=== PATIENT | female | born 1975 | race Caucasian/White ===

== ENCOUNTER 2017-02-21 15:32 | Emergency (ER) | payer OTHER ==
[~2017-02-21] VITALS: Ht 157.5 cm; Wt 65.0 kg
[~2017-02-21 15:32] MED LIST: CITA10TA8 PO; CLON0.5T PO; ONDA4TAB7 PO; OXYC-302 PO
[2017-02-21] MEDS ORDERED: HYDROmorphone 2 MG/ML, 1ML ONE (16:56)
[2017-02-21] MEDS ORDERED: ONDANSETRON 2MG/ML, 2ML ONE (16:56)
[2017-02-21] MEDS ORDERED: SODIUM CHLORIDE FLUSH 10ML SYR IVF ONE (17:00)
[2017-02-21] MEDS ORDERED: ONDANSETRON 2MG/ML, 2ML IVPush ONE (17:00)
[2017-02-21] MEDS ORDERED: SODIUM CHLORIDE 0.9% 1,000ML IVBOLUS ONE (17:00)
[2017-02-21] MEDS ORDERED: HYDROmorphone 1 MG/ML, 1ML IVPush PRN (17:00)
[2017-02-21 17:10] LABS: MICROSCOPIC AUTO
[2017-02-21 17:14] LABS: CULTURE INDICATED? NO
[2017-02-21 17:16] LABS: BASOPHILS # (AUTO) 0.02 x10^3/uL (0-0.1); BASOPHILS % (AUTO) 0 % (0-1); EOSINOPHILS % (AUTO) 0 % (1-7); LYMPHOCYTES # (AUTO) 0.84 x10^3/uL (1-3.4); LYMPHOCYTES % (AUTO) 7 % (22-44); MD NO; MEAN CORPUSCULAR HEMOGLOBIN 26.9 pg (27.0-34.8); MEAN CORPUSCULAR HGB CONC 32.6 g/dL (32.4-35.8); MEAN CORPUSCULAR VOLUME 82.6 fL (80-100); MEAN PLATELET VOLUME 8.2 fL (7.4-10.4); MONOCYTES # (AUTO) 0.25 x10^3/uL (0.2-0.8); MONOCYTES % (AUTO) 2 % (2-9); NEUTROPHILS # (AUTO) 10.93 x10^3/uL (1.8-6.8); NEUTROPHILS % (AUTO) 91 % (42-75); PLATELET COUNT 345 x10^3/uL (130-400); RED BLOOD COUNT 4.78 x10^6/uL (3.82-5.3); RED CELL DISTRIBUTION WIDTH 17.1 % (9.6-15.2)
[2017-02-21 17:24] LABS: ALANINE AMINOTRANSFERASE 20 U/L (12-78); ALBUMIN 3.5 g/dL (3.4-5.0); ANION GAP 7 mmol/L (5-15); CALCIUM 8.6 mg/dL (8.5-10.1); CHLORIDE 111 mmol/L (98-107); CREATININE 0.73 mg/dL (0.55-1.02)
[2017-02-21 17:26] LABS: ALKALINE PHOSPHATASE 66 U/L (45-117); BILIRUBIN,TOTAL 0.2 mg/dL (0.2-1.0); TOTAL PROTEIN 6.8 g/dL (6.4-8.2)
[2017-02-21 18:22] VITALS: BP 117/67
== END 2017-02-21 18:46 | disposition home or self-care (01) ==
LOC: ED 18:19
DX: K56.690 Other partial intestinal obstruction (principal); K59.00 Constipation, unspecified; F32.9 Major depressive disorder, single episode, unspecified
CPT/HCPCS: 36415; 74021; 80053; 81001; 83690; 85025; 96361; 96374; 96375; 99285; J1170; J2405; J7030

== ENCOUNTER → 2017-03-24 | Outpatient (CLI) | payer OTHER ==
[~2017-03-24] MED LIST changes: +GADOBUTROL 10 MMOL/10 ML VIAL ONE
== END | disposition home or self-care (01) ==
LOC: MERGE 02-18 08:15 → CFH 12:07
PROVIDERS: ATTEND Internal Medicine Hematology & Oncology
DX: D48.1 Neoplasm of uncertain behavior of connective and other soft tissue (principal); Z98.890 Other specified postprocedural states
CPT/HCPCS: 72197; 74183; A9585

== ENCOUNTER → 2017-07-07 | Outpatient (CLI) | payer OTHER ==
[~2017-07-07] MED LIST changes: -GADOBUTROL 10 MMOL/10 ML VIAL ONE; +SINCALIDE (KINEVAC) 5 MCG ONE
== END | disposition home or self-care (01) ==
LOC: PETCFH 12:23 → MERGE 12:23
DX: R10.11 Right upper quadrant pain (principal); R11.0 Nausea; R19.4 Change in bowel habit
CPT/HCPCS: 78227; A9537; J2805

== ENCOUNTER 2017-08-22 19:08 | Inpatient (IN) | payer OTHER ==
[~2017-08-22] VITALS: Ht 157.5 cm; Wt 73.1 kg
[~2017-08-22 19:08] MED LIST changes: -SINCALIDE (KINEVAC) 5 MCG ONE
[2017-08-22] MEDS ORDERED: ONDANSETRON 2MG/ML, 2ML ONE (19:39)
[2017-08-22] MEDS ORDERED: MORPHINE SULFATE 4 MG/ML, 1ML ONE ×2 (19:39→19:54)
[2017-08-22] MEDS ORDERED: LAMO100T6 PO (19:50)
[2017-08-22 19:51] LABS: BASOPHILS # (AUTO) 0.05 x10^3/uL (0-0.1); BASOPHILS % (AUTO) 0 % (0-1); EOSINOPHILS # (AUTO) 0.02 x10^3/uL (0-0.4); EOSINOPHILS % (AUTO) 0 % (1-7); LYMPHOCYTES # (AUTO) 1.47 x10^3/uL (1-3.4); LYMPHOCYTES % (AUTO) 9 % (22-44); MD NO; MEAN CORPUSCULAR HGB CONC 32.8 g/dL (32.4-35.8); MEAN CORPUSCULAR VOLUME 88.4 fL (80-100); MEAN PLATELET VOLUME 8.7 fL (7.4-10.4); MONOCYTES # (AUTO) 0.59 x10^3/uL (0.2-0.8); MONOCYTES % (AUTO) 4 % (2-9); NEUTROPHILS # (AUTO) 14.27 x10^3/uL (1.8-6.8); NEUTROPHILS % (AUTO) 87 % (42-75); PLATELET COUNT 344 x10^3/uL (130-400); RED BLOOD COUNT 5.24 x10^6/uL (3.82-5.3); RED CELL DISTRIBUTION WIDTH 16.1 % (9.6-15.2)
[2017-08-22] MEDS: MORPHINE SULFATE 4 MG/ML, 1ML IVPush PRN ×2 (19:51→20:10)
[2017-08-22] MEDS ORDERED: ALBUTEROL SULFATE 2.5 MG/3 ML ONE (19:57)
[2017-08-22] MEDS ORDERED: SODIUM CHLORIDE FLUSH 10ML SYR IVF ONE (20:00)
[2017-08-22] MEDS ORDERED: ONDANSETRON 2MG/ML, 2ML IVPush ONE (20:00)
[2017-08-22] MEDS ORDERED: ONDANSETRON ODT 4 MG PO ONE (20:00)
[2017-08-22 20:03] LABS: ALANINE AMINOTRANSFERASE 25 U/L (12-78); ALBUMIN 4.1 g/dL (3.4-5.0); ANION GAP 11 mmol/L (5-15); CALCIUM 9.5 mg/dL (8.5-10.1); CHLORIDE 111 mmol/L (98-107); CREATININE 0.78 mg/dL (0.55-1.02)
[2017-08-22 20:09] LABS: ALKALINE PHOSPHATASE 59 U/L (45-117); BILIRUBIN,TOTAL 0.4 mg/dL (0.2-1.0); TOTAL PROTEIN 7.4 g/dL (6.4-8.2)
[2017-08-22 20:14] LABS: MICROSCOPIC AUTO
[2017-08-22 20:16] LABS: CULTURE INDICATED? YES
[2017-08-22] MEDS ORDERED: SODIUM CHLORIDE 0.9% 1,000ML IVBOLUS ONE (20:30)
[2017-08-22] MEDS ORDERED: BISACODYL 10 MG SUPP PR PRN (21:30)
[2017-08-22 21:53] VITALS: BP 107/65
[2017-08-22] MEDS ORDERED: ACETAMINOPHEN 325 MG TABLET PO PRN (22:00)
[2017-08-22] MEDS ORDERED: ONDANSETRON 2MG/ML, 2ML IVPush PRN (22:00)
[2017-08-22] MEDS ORDERED: LAMOTRIGINE 100 MG PO SCH (22:00)
[2017-08-22] MEDS ORDERED: POLY17PO5 PO (22:01)
[2017-08-22] MEDS: SODIUM CHLORIDE 0.9% 1,000 ML IV SCH (22:42)
[2017-08-22] MEDS: morphine SULFATE 10 MG/ML, 1ML IVPush PRN (22:43)
[2017-08-22] MEDS: HEPARIN 5,000 UNITS/ML, 1ML SQ SCH (22:43)
[2017-08-23] MEDS ORDERED: OMNIPAQUE 350 MG/ML, 100ML BOTTLE ONE
[2017-08-23] MEDS: morphine SULFATE 10 MG/ML, 1ML IVPush PRN (00:02)
[2017-08-23 01:26] VITALS: BP 101/60
[2017-08-23 04:23] LABS: BASOPHILS # (AUTO) 0.08 x10^3/uL (0-0.1); BASOPHILS % (AUTO) 1 % (0-1); EOSINOPHILS # (AUTO) 0.01 x10^3/uL (0-0.4); EOSINOPHILS % (AUTO) 0 % (1-7); LYMPHOCYTES # (AUTO) 2.03 x10^3/uL (1-3.4); LYMPHOCYTES % (AUTO) 22 % (22-44); MD NO; MEAN CORPUSCULAR HEMOGLOBIN 29.4 pg (27.0-34.8); MEAN CORPUSCULAR VOLUME 89.1 fL (80-100); MEAN PLATELET VOLUME 8.4 fL (7.4-10.4); MONOCYTES # (AUTO) 0.48 x10^3/uL (0.2-0.8); MONOCYTES % (AUTO) 5 % (2-9); NEUTROPHILS # (AUTO) 6.81 x10^3/uL (1.8-6.8); NEUTROPHILS % (AUTO) 72 % (42-75); PLATELET COUNT 255 x10^3/uL (130-400); RED CELL DISTRIBUTION WIDTH 16.2 % (9.6-15.2)
[2017-08-23 04:35] LABS: ANION GAP 6 mmol/L (5-15); CALCIUM 7.9 mg/dL (8.5-10.1); CHLORIDE 117 mmol/L (98-107)
[2017-08-23 04:40] LABS: ALANINE AMINOTRANSFERASE 18 U/L (12-78); ALKALINE PHOSPHATASE 43 U/L (45-117); BILIRUBIN,TOTAL 0.5 mg/dL (0.2-1.0); TOTAL PROTEIN 5.3 g/dL (6.4-8.2)
[2017-08-23] MEDS: HEPARIN 5,000 UNITS/ML, 1ML SQ SCH ×2 (05:40→14:39)
[2017-08-23 06:52] VITALS: BP 94/57
[2017-08-23] MEDS: SODIUM CHLORIDE 0.9% 1,000 ML IV SCH ×2 (08:13→17:31)
[2017-08-23] MEDS ORDERED: CITALOPRAM 10 MG TABLET PO SCH (09:00)
[2017-08-23 12:38] VITALS: BP 95/59
== END 2017-08-23 17:35 | disposition home or self-care (01) | DRG 388 ==
LOC: ED 21:01 → EDIP 21:15 → 3NW 21:46
PROVIDERS: ADMIT Hospitalist; ATTEND Hospitalist
DX: K56.600 Partial intestinal obstruction, unspecified as to cause (principal); E43 Unspecified severe protein-calorie malnutrition; K56.7 Ileus, unspecified; E88.89 Other specified metabolic disorders; Z68.29 Body mass index [BMI] 29.0-29.9, adult; Z88.8 Allergy status to other drugs, medicaments and biological substances
CPT/HCPCS: 36415; 74018; 74177; 80053; 81001; 83690; 84703; 85025; 87077; 87086; 87186; 93005; 96361; 96374; 96375; J1644; J2405; Q9967; J2270; J7030

== ENCOUNTER 2018-04-18 16:24 | Inpatient (IN) | payer OTHER ==
[~2018-04-18] VITALS: Ht 157.5 cm; Wt 53.0 kg
[~2018-04-18 16:24] MED LIST changes: +LAMO100T6 PO; +POLY17PO5 PO
[2018-04-18] MEDS ORDERED: ONDANSETRON 2MG/ML, 2ML ONE (17:29)
[2018-04-18] MEDS ORDERED: MORPHINE SULFATE 4 MG/ML, 1ML ONE (17:29)
[2018-04-18] MEDS ORDERED: SODIUM CHLORIDE FLUSH 10ML SYR IVF ONE (17:30)
[2018-04-18] MEDS ORDERED: ONDANSETRON 2MG/ML, 2ML IVPush ONE (17:30)
[2018-04-18] MEDS: MORPHINE SULFATE 4 MG/ML, 1ML IVPush PRN ×2 (17:32→20:11)
[2018-04-18 17:39] LABS: BASOPHILS # (AUTO) 0.01 x10^3/uL (0-0.1); BASOPHILS % (AUTO) 0 % (0-1); EOSINOPHILS # (AUTO) 0.01 x10^3/uL (0-0.4); EOSINOPHILS % (AUTO) 0 % (1-7); LYMPHOCYTES # (AUTO) 0.98 x10^3/uL (1-3.4); LYMPHOCYTES % (AUTO) 11 % (22-44); MD NO; MEAN CORPUSCULAR HEMOGLOBIN 29.1 pg (27.0-34.8); MEAN CORPUSCULAR HGB CONC 33.2 g/dL (32.4-35.8); MEAN CORPUSCULAR VOLUME 87.8 fL (80-100); MEAN PLATELET VOLUME 7.6 fL (7.4-10.4); MONOCYTES # (AUTO) 0.31 x10^3/uL (0.2-0.8); MONOCYTES % (AUTO) 3 % (2-9); NEUTROPHILS # (AUTO) 7.89 x10^3/uL (1.8-6.8); NEUTROPHILS % (AUTO) 86 % (42-75); PLATELET COUNT 286 x10^3/uL (130-400); RED BLOOD COUNT 4.72 x10^6/uL (3.82-5.3); RED CELL DISTRIBUTION WIDTH 14.4 % (9.6-15.2)
--- NOTE | 2018-04-18 17:39 | NUR ---
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 IV IN PLACE, PT C/O 09/24 PAIN. PT MEDICATED FOR PAIN AND NAUSEA
[2018-04-18 17:49] LABS: ALBUMIN 3.6 g/dL (3.4-5.0); ANION GAP 5 mmol/L (5-15); CALCIUM 8.4 mg/dL (8.5-10.1); CHLORIDE 115 mmol/L (98-107)
[2018-04-18 17:54] LABS: ALANINE AMINOTRANSFERASE 21 U/L (12-78); ALKALINE PHOSPHATASE 51 U/L (45-117); BILIRUBIN,TOTAL 0.3 mg/dL (0.2-1.0); CREATININE 0.72 mg/dL (0.55-1.02); TOTAL PROTEIN 6.4 g/dL (6.4-8.2)
[2018-04-18] MEDS ORDERED: OMNIPAQUE 350 MG/ML, 100ML BOTTLE ONE (18:25)
--- NOTE | 2018-04-18 18:42 | NUR ---
PT RESTING IN GURNEY, NAD, VSS, CALL LIGHT WITHIN REACH. WCTM
--- NOTE | 2018-04-18 18:54 | NUR ---
PT BEDSIDE REPORT FROM LAURO MALIN. THIS RN TO ASSUME CARE OF PT. TBADM. AWAITING ADM BED.
[2018-04-18 19:55] VITALS: BP 102/66
[2018-04-18] MEDS ORDERED: BUPR-173 PO (21:50)
[2018-04-18] MEDS ORDERED: ONDANSETRON 2MG/ML, 2ML IVPush PRN (22:00)
[2018-04-18] MEDS ORDERED: BISACODYL 10 MG SUPP PR PRN (22:00)
[2018-04-18] MEDS ORDERED: MORPHINE SULFATE 4 MG/ML, 1ML IVPush PRN (22:00)
[2018-04-18] MEDS: D5%-0.45% NACL 1,000 ML IV SCH (22:08)
[2018-04-19 03:19] VITALS: BP 92/52
[2018-04-19 04:37] LABS: BASOPHILS # (AUTO) 0.02 x10^3/uL (0-0.1); BASOPHILS % (AUTO) 1 % (0-1); EOSINOPHILS # (AUTO) 0.05 x10^3/uL (0-0.4); EOSINOPHILS % (AUTO) 1 % (1-7); LYMPHOCYTES % (AUTO) 42 % (22-44); MD NO; MEAN CORPUSCULAR HEMOGLOBIN 29.4 pg (27.0-34.8); MEAN CORPUSCULAR HGB CONC 33.6 g/dL (32.4-35.8); MEAN CORPUSCULAR VOLUME 87.4 fL (80-100); MEAN PLATELET VOLUME 7.6 fL (7.4-10.4); MONOCYTES # (AUTO) 0.39 x10^3/uL (0.2-0.8); MONOCYTES % (AUTO) 8 % (2-9); NEUTROPHILS # (AUTO) 2.56 x10^3/uL (1.8-6.8); NEUTROPHILS % (AUTO) 49 % (42-75); PLATELET COUNT 262 x10^3/uL (130-400); RED CELL DISTRIBUTION WIDTH 14.4 % (9.6-15.2)
[2018-04-19 04:49] LABS: CALCIUM 8.2 mg/dL (8.5-10.1); CHLORIDE 114 mmol/L (98-107)
[2018-04-19 04:55] LABS: ALANINE AMINOTRANSFERASE 18 U/L (12-78); ALBUMIN 3.2 g/dL (3.4-5.0); ALKALINE PHOSPHATASE 44 U/L (45-117); ANION GAP 3 mmol/L (5-15); BILIRUBIN,TOTAL 0.5 mg/dL (0.2-1.0); CREATININE 0.89 mg/dL (0.55-1.02); TOTAL PROTEIN 5.5 g/dL (6.4-8.2)
[2018-04-19] MEDS: D5%-0.45% NACL 1,000 ML IV SCH ×2 (06:32→13:49)
[2018-04-19 07:32] VITALS: BP 103/65
[2018-04-19 14:09] VITALS: BP 105/67
== END 2018-04-19 19:02 | disposition home or self-care (01) | DRG 389 ==
LOC: ED 18:44 → 3NW 18:45
PROVIDERS: ADMIT Internal Medicine; ATTEND Internal Medicine
DX: K56.7 Ileus, unspecified (principal); F33.9 Major depressive disorder, recurrent, unspecified; K56.51 Intestinal adhesions [bands], with partial obstruction; F41.9 Anxiety disorder, unspecified; Z88.8 Allergy status to other drugs, medicaments and biological substances
CPT/HCPCS: 36415; 74177; 80053; 83690; 84703; 85025; 96374; 99285; G0378; J2405; Q9967

== ENCOUNTER 2018-06-28 18:39 | Inpatient (IN) | payer OTHER ==
[~2018-06-28] VITALS: Ht 157.5 cm; Wt 56.4 kg
[~2018-06-28 18:39] MED LIST changes: +BUPR-173 PO
[2018-06-28 19:27] LABS: BASOPHILS # (AUTO) 0.02 x10^3/uL (0-0.1); BASOPHILS % (AUTO) 0 % (0-1); EOSINOPHILS % (AUTO) 0 % (1-7); LYMPHOCYTES % (AUTO) 7 % (22-44); MD NO; MEAN CORPUSCULAR HEMOGLOBIN 29.2 pg (27.0-34.8); MEAN CORPUSCULAR HGB CONC 33.5 g/dL (32.4-35.8); MEAN CORPUSCULAR VOLUME 87.3 fL (80-100); MEAN PLATELET VOLUME 8.1 fL (7.4-10.4); MONOCYTES # (AUTO) 0.13 x10^3/uL (0.2-0.8); MONOCYTES % (AUTO) 1 % (2-9); NEUTROPHILS # (AUTO) 12.29 x10^3/uL (1.8-6.8); NEUTROPHILS % (AUTO) 92 % (42-75); PLATELET COUNT 391 x10^3/uL (130-400); RED BLOOD COUNT 5.36 x10^6/uL (3.82-5.3); RED CELL DISTRIBUTION WIDTH 14.3 % (9.6-15.2)
[2018-06-28 19:38] LABS: ALBUMIN 4.1 g/dL (3.4-5.0); ANION GAP 8 mmol/L (5-15); CALCIUM 9.7 mg/dL (8.5-10.1); CHLORIDE 108 mmol/L (98-107)
[2018-06-28 19:51] LABS: ALANINE AMINOTRANSFERASE 23 U/L (12-78); ALKALINE PHOSPHATASE 59 U/L (45-117); BILIRUBIN,TOTAL 0.5 mg/dL (0.2-1.0); CREATININE 0.82 mg/dL (0.55-1.02); TOTAL PROTEIN 7.3 g/dL (6.4-8.2)
[2018-06-28] MEDS ORDERED: MORPHINE SULFATE 4 MG/ML, 1ML ONE ×2 (19:59→20:41)
[2018-06-28] MEDS ORDERED: ONDANSETRON 2MG/ML, 2ML ONE (19:59)
[2018-06-28] MEDS ORDERED: SODIUM CHLORIDE FLUSH 10ML SYR IVF ONE (20:00)
[2018-06-28] MEDS ORDERED: ONDANSETRON 2MG/ML, 2ML IVPush ONE (20:00)
--- NOTE | 2018-06-28 20:11 | NUR ---
PT HERE FOR CENTRAL ABD PAIN WITH N/V. PT HAS HX OF SBO. VSS. PIV PLACED AND PT MEDICATED. CALL LIGHT IN REACH
[2018-06-28] MEDS: MORPHINE SULFATE 4 MG/ML, 1ML IVPush PRN ×2 (20:13→20:46)
[2018-06-28] MEDS ORDERED: SODIUM CHLORIDE 0.9% 1,000 ML IV ONE (20:28)
[2018-06-28] MEDS ORDERED: HYDROmorphone 1 MG/ML, 1ML INJ IVPush PRN (20:30)
[2018-06-28] MEDS ORDERED: ONDANSETRON 2MG/ML, 2ML IVPush PRN (20:30)
[2018-06-28] MEDS: LAMOTRIGINE 100 MG TABLET PO SCH (21:58)
[2018-06-28] MEDS: HYDROmorphone 2 MG/ML, 1ML IVPush PRN ×2 (21:58→22:13)
[2018-06-28] MEDS: BISACODYL 10 MG SUPP PR SCH (21:58)
[2018-06-28] MEDS: SODIUM CHLORIDE 0.9% 1,000 ML IV SCH (21:58)
[2018-06-29] MEDS: ONDANSETRON 2MG/ML, 2ML IVPush PRN ×2 (01:02→07:14)
[2018-06-29] MEDS: HYDROmorphone 2 MG/ML, 1ML IVPush PRN (01:03)
[2018-06-29 05:16] VITALS: BP 94/58
[2018-06-29 05:59] LABS: BASOPHILS # (AUTO) 0.03 x10^3/uL (0-0.1); BASOPHILS % (AUTO) 0 % (0-1); EOSINOPHILS % (AUTO) 0 % (1-7); LYMPHOCYTES # (AUTO) 1.79 x10^3/uL (1-3.4); LYMPHOCYTES % (AUTO) 19 % (22-44); MD NO; MEAN CORPUSCULAR HEMOGLOBIN 29.3 pg (27.0-34.8); MEAN CORPUSCULAR HGB CONC 33.1 g/dL (32.4-35.8); MEAN CORPUSCULAR VOLUME 88.5 fL (80-100); MEAN PLATELET VOLUME 7.6 fL (7.4-10.4); MONOCYTES # (AUTO) 0.74 x10^3/uL (0.2-0.8); MONOCYTES % (AUTO) 8 % (2-9); NEUTROPHILS % (AUTO) 73 % (42-75); PLATELET COUNT 314 x10^3/uL (130-400); RED BLOOD COUNT 4.48 x10^6/uL (3.82-5.3); RED CELL DISTRIBUTION WIDTH 14.3 % (9.6-15.2)
[2018-06-29 06:05] LABS: CHLORIDE 113 mmol/L (98-107)
[2018-06-29 06:53] LABS: ALANINE AMINOTRANSFERASE 15 U/L (12-78); ALBUMIN 3.3 g/dL (3.4-5.0); ALKALINE PHOSPHATASE 45 U/L (45-117); ANION GAP 7 mmol/L (5-15); BILIRUBIN,TOTAL 0.3 mg/dL (0.2-1.0); CALCIUM 8.3 mg/dL (8.5-10.1); CREATININE 0.86 mg/dL (0.55-1.02)
[2018-06-29] MEDS: SODIUM CHLORIDE 0.9% 1,000 ML IV SCH ×2 (07:08→16:18)
[2018-06-29 08:17] VITALS: BP 96/61
[2018-06-29] MEDS: BISACODYL 10 MG SUPP PR SCH (08:24)
[2018-06-29] MEDS ORDERED: CITALOPRAM 10 MG TABLET PO SCH (09:00)
[2018-06-29] MEDS: ACETAMINOPHEN 325 MG TABLET PO PRN ×2 (10:39→20:37)
[2018-06-29 11:25] LABS: CULTURE INDICATED? NO; HCG UR SG 1.029 (1.003-1.030); MICROSCOPIC NOT IND
[2018-06-29 13:27] VITALS: BP 89/54
[2018-06-29 15:58] VITALS: BP 96/57
[2018-06-29 19:47] VITALS: BP 94/61
[2018-06-29] MEDS: LAMOTRIGINE 100 MG TABLET PO SCH (20:37)
[2018-06-30 01:26] VITALS: BP 96/57
[2018-06-30] MEDS: SODIUM CHLORIDE 0.9% 1,000 ML IV SCH (03:43)
[2018-06-30] MEDS ORDERED: BISA10SU54 PR (08:34)
[2018-06-30 09:22] VITALS: BP 107/69
== END 2018-06-30 10:05 | disposition home or self-care (01) | DRG 390 ==
LOC: ED 20:08 → EDIP 21:13 → 4NOR 21:20 → DCLOUNGE 06-30 09:58
PROVIDERS: ADMIT Internal Medicine; ATTEND Internal Medicine
DX: K56.51 Intestinal adhesions [bands], with partial obstruction (principal); D72.829 Elevated white blood cell count, unspecified; F32.9 Major depressive disorder, single episode, unspecified; Z88.8 Allergy status to other drugs, medicaments and biological substances
CPT/HCPCS: 36415; 74018; 74021; 80053; 81003; 81025; 83735; 85025; 96374; 96375; 99285; G0378; J1170; J2405; J7030

== ENCOUNTER 2018-12-31 19:31 | Inpatient (IN) | payer OTHER ==
[~2018-12-31] VITALS: Ht 157.5 cm; Wt 56.9 kg
[~2018-12-31 19:31] MED LIST changes: +BISA10SU54 PR
--- NOTE | 2018-12-31 19:55 | NUR ---
ERP AT NOW.
--- NOTE | 2018-12-31 20:15 | NUR ---
PT AMBULATED TO XR WITH ORGAN PIPE VOICER.
[2018-12-31] MEDS ORDERED: MORPHINE SULFATE 4 MG/ML, 1ML ONE ×2 (20:16→21:06)
[2018-12-31] MEDS ORDERED: ONDANSETRON 2MG/ML, 2ML ONE (20:16)
[2018-12-31] MEDS ORDERED: SODIUM CHLORIDE 0.9% 1,000ML IVBOLUS ONE (20:30)
[2018-12-31] MEDS ORDERED: ONDANSETRON 2MG/ML, 2ML IVPush ONE (20:30)
[2018-12-31] MEDS ORDERED: MORPHINE SULFATE 4 MG/ML, 1ML IVPush PRN ×2 (20:30→22:30)
[2018-12-31 20:31] LABS: CULTURE INDICATED? YES; MICROSCOPIC INDICATED
[2018-12-31 21:01] LABS: BASOPHILS # (AUTO) 0.01 x10^3/uL (0-0.1); BASOPHILS % (AUTO) 0 % (0-1); EOSINOPHILS % (AUTO) 0 % (1-7); LYMPHOCYTES # (AUTO) 0.61 x10^3/uL (1-3.4); LYMPHOCYTES % (AUTO) 4 % (22-44); MD NO; MEAN CORPUSCULAR HEMOGLOBIN 29.9 pg (27.0-34.8); MEAN CORPUSCULAR HGB CONC 32.6 g/dL (32.4-35.8); MEAN CORPUSCULAR VOLUME 91.8 fL (80-100); MONOCYTES # (AUTO) 0.44 x10^3/uL (0.2-0.8); MONOCYTES % (AUTO) 3 % (2-9); NEUTROPHILS # (AUTO) 13.84 x10^3/uL (1.8-6.8); NEUTROPHILS % (AUTO) 93 % (42-75); PLATELET COUNT 328 x10^3/uL (130-400); RED BLOOD COUNT 4.79 x10^6/uL (3.82-5.3); RED CELL DISTRIBUTION WIDTH 14.1 % (9.6-15.2)
[2018-12-31 21:12] LABS: ALANINE AMINOTRANSFERASE 20 U/L (12-78); ALBUMIN 3.9 g/dL (3.4-5.0); ANION GAP 8 mmol/L (5-15); CALCIUM 8.9 mg/dL (8.5-10.1); CHLORIDE 113 mmol/L (98-107); CREATININE 0.69 mg/dL (0.55-1.02)
[2018-12-31 21:15] LABS: ALKALINE PHOSPHATASE 52 U/L (45-117); BILIRUBIN,TOTAL 0.4 mg/dL (0.2-1.0); TOTAL PROTEIN 7.2 g/dL (6.4-8.2)
--- NOTE | 2018-12-31 21:45 | NUR ---
REPORT FROM ANDRES MALIN. ASSUMING CARE OF PT AT THIS TIME
[2018-12-31] MEDS ORDERED: SODIUM CHLORIDE 0.9% 1,000 ML IV ONE (22:02)
--- NOTE | 2018-12-31 22:20 | NUR ---
PT RESTING ON GURNEY. CALL LIGHT IN REACH. AT BEDSIDE
[2018-12-31] MEDS ORDERED: ONDANSETRON 2MG/ML, 2ML IVPush PRN (22:30)
[2018-12-31 23:00] VITALS: BP 105/69
[2018-12-31] MEDS ORDERED: FLU VACC QS2019-20 36MOS UP/PF 0.5 ML IM-VACC ONE (23:30)
[2019-01-01] MEDS ORDERED: ACETAMINOPHEN 325 MG TABLET PO PRN (00:30)
[2019-01-01] MEDS ORDERED: TEMAZEPAM 15 MG CAPSULE PO PRN (00:30)
[2019-01-01] MEDS: HYDROmorphone 2 MG/ML, 1ML IVPush PRN ×4 (00:49→17:23)
[2019-01-01] MEDS: SODIUM CHLORIDE 0.9% 1,000 ML IV SCH ×3 (00:59→21:00)
[2019-01-01] MEDS: BISACODYL 10 MG SUPP PR SCH ×3 (01:05→16:40)
[2019-01-01 01:54] VITALS: BP 107/68
[2019-01-01] MEDS: ONDANSETRON 2MG/ML, 2ML IVPush PRN ×2 (06:53→17:23)
[2019-01-01 07:34] VITALS: BP 101/61
[2019-01-01] MEDS: CITALOPRAM 10 MG TABLET PO SCH (08:12)
[2019-01-01] MEDS: METOCLOPRAMIDE 5 MG/ML, 2ML IVPush SCH ×3 (11:24→23:00)
[2019-01-01] MEDS: CEFTRIAXONE PMX 1GM/50ML 50 ML IV SCH (11:59)
[2019-01-01 12:29] LABS: CLOSTRIDIUM DIFFICILE ANTIGEN NEGATIVE; CLOSTRIDIUM DIFFICILE TOXIN NEGATIVE (Negative)
[2019-01-01 13:54] VITALS: BP 100/63
[2019-01-01 19:36] VITALS: BP 99/62
[2019-01-01] MEDS ORDERED: LAMOTRIGINE 100 MG TABLET HOMEMEDPO SCH (23:00)
[2019-01-02 00:18] VITALS: BP 104/53
[2019-01-02] MEDS: METOCLOPRAMIDE 5 MG/ML, 2ML IVPush SCH ×2 (05:00→11:00)
[2019-01-02 05:48] LABS: ANION GAP 4 mmol/L (5-15); CALCIUM 7.9 mg/dL (8.5-10.1); CHLORIDE 113 mmol/L (98-107)
[2019-01-02 05:49] LABS: CREATININE 0.65 mg/dL (0.55-1.02)
[2019-01-02 05:59] LABS: BASOPHILS # (AUTO) 0.02 x10^3/uL (0-0.1); BASOPHILS % (AUTO) 0 % (0-1); EOSINOPHILS # (AUTO) 0.09 x10^3/uL (0-0.4); EOSINOPHILS % (AUTO) 2 % (1-7); LYMPHOCYTES # (AUTO) 1.05 x10^3/uL (1-3.4); LYMPHOCYTES % (AUTO) 20 % (22-44); MD NO; MEAN CORPUSCULAR HEMOGLOBIN 29.7 pg (27.0-34.8); MEAN CORPUSCULAR HGB CONC 32.4 g/dL (32.4-35.8); MEAN CORPUSCULAR VOLUME 91.6 fL (80-100); MEAN PLATELET VOLUME 7.9 fL (7.4-10.4); MONOCYTES % (AUTO) 13 % (2-9); NEUTROPHILS # (AUTO) 3.45 x10^3/uL (1.8-6.8); NEUTROPHILS % (AUTO) 65 % (42-75); PLATELET COUNT 240 x10^3/uL (130-400); RED BLOOD COUNT 3.99 x10^6/uL (3.82-5.3); RED CELL DISTRIBUTION WIDTH 14.1 % (9.6-15.2)
[2019-01-02 06:52] VITALS: BP 95/60
[2019-01-02] MEDS: BISACODYL 10 MG SUPP PR SCH (07:47)
[2019-01-02] MEDS: SODIUM CHLORIDE 0.9% 1,000 ML IV SCH (07:47)
[2019-01-02] MEDS: CITALOPRAM 10 MG TABLET PO SCH (07:53)
[2019-01-02] MEDS: CEFTRIAXONE PMX 1GM/50ML 50 ML IV SCH (11:02)
[2019-01-02 14:13] VITALS: BP 95/59
[2019-01-02] MEDS ORDERED: ACID1TAB7 PO (14:18)
[2019-01-02] MEDS ORDERED: CEFD300C37 PO (14:18)
[2019-01-02] MEDS ORDERED: BISA10SU4 PR (14:18)
[2019-01-02] MEDS ORDERED: LACTOBACILLUS CHEW TABLET PO SCH (16:00)
[2019-01-02] MEDS ORDERED: CEFDINIR 300 MG CAPSULE PO SCH (21:00)
== END 2019-01-02 15:25 | disposition home or self-care (01) | DRG 389 ==
LOC: ED 21:48 → EDIP 22:02 → 3N 22:30 → DCLOUNGE 01-02 15:14
PROVIDERS: ADMIT Internal Medicine; ATTEND Internal Medicine
DX: K56.51 Intestinal adhesions [bands], with partial obstruction (principal); F33.9 Major depressive disorder, recurrent, unspecified; N39.0 Urinary tract infection, site not specified; B96.1 Klebsiella pneumoniae [K. pneumoniae] as the cause of diseases classified elsewhere; Z90.49 Acquired absence of other specified parts of digestive tract; Z92.3 Personal history of irradiation; Z88.8 Allergy status to other drugs, medicaments and biological substances
CPT/HCPCS: 36415; 74021; 80048; 80053; 81001; 83690; 85025; 87077; 87086; 87186; 87324; 90686; G0378; J0696; J1170; J2405; J2270; J2765; J7030

== ENCOUNTER 2019-11-14 11:28 | Outpatient (CLI) | payer OTHER ==
[~2019-11-14 11:28] MED LIST changes: +ACID1TAB7 PO; +BISA10SU4 PR; +CEFD300C37 PO
== END 2019-11-14 23:59 | disposition home or self-care (01) ==
LOC: CFH 11:28
PROVIDERS: ATTEND Nurse Practitioner Primary Care
DX: Z12.31 Encounter for screening mammogram for malignant neoplasm of breast (principal)
CPT/HCPCS: 77067

== ENCOUNTER 2020-05-13 11:25 | Inpatient (IN) | payer OTHER ==
[~2020-05-13] VITALS: Ht 157.5 cm; Wt 56.3 kg
[~2020-05-13 11:25] MED LIST changes: -OXYC-302 PO; +OXYC1TAB14 PO
--- NOTE | 2020-05-13 12:11 | NUR ---
TO VERITO FROM LOBBY
--- NOTE | 2020-05-13 12:31 | NUR ---
pt shannan back from triage with chief complaint of abd pain
[2020-05-13] MEDS ORDERED: ONDANSETRON 2MG/ML, 2ML IVPush ONE (13:00)
[2020-05-13] MEDS ORDERED: SODIUM CHLORIDE FLUSH 10ML SYR IVF ONE (13:00)
--- NOTE | 2020-05-13 13:01 | NUR ---
REPORT TO SHARAN MALIN
--- NOTE | 2020-05-13 13:01 | NUR ---
RECEIVED REPORT FROM YUSUF MALIN, PLAN OF CARE DISCUSSED
[2020-05-13] MEDS ORDERED: ONDANSETRON 2MG/ML, 2ML ONE (13:03)
[2020-05-13 13:04] LABS: BASOPHILS % (AUTO) 0 % (0-1); EOSINOPHILS % (AUTO) 0 % (1-7); LYMPHOCYTES % (AUTO) 11 % (22-44); MEAN CORPUSCULAR HEMOGLOBIN 30.7 pg (27.0-34.8); MEAN CORPUSCULAR HGB CONC 33.6 g/dL (32.4-35.8); MONOCYTES % (AUTO) 4 % (2-9); NEUTROPHILS % (AUTO) 85 % (42-75); PLATELET COUNT 299 x10^3/uL (130-400); RED BLOOD COUNT 4.69 x10^6/uL (3.82-5.3); RED CELL DISTRIBUTION WIDTH 13.2 % (9.6-15.2)
[2020-05-13] MEDS ORDERED: MORPHINE SULFATE 4 MG/ML, 1ML ONE ×2 (13:04→13:43)
[2020-05-13 13:05] LABS: MD NO
[2020-05-13 13:11] LABS: ALANINE AMINOTRANSFERASE 33 U/L (12-78); ALBUMIN 4.3 g/dL (3.4-5.0); ANION GAP 5 mmol/L (5-15); CALCIUM 9.3 mg/dL (8.5-10.1); CHLORIDE 108 mmol/L (98-107); CREATININE 0.83 mg/dL (0.55-1.02)
[2020-05-13] MEDS: MORPHINE SULFATE 4 MG/ML, 1ML IVPush PRN ×2 (13:16→13:45)
[2020-05-13 13:17] LABS: ALKALINE PHOSPHATASE 56 U/L (45-117); BILIRUBIN,TOTAL 0.4 mg/dL (0.2-1.0); TOTAL PROTEIN 7.4 g/dL (6.4-8.2)
--- NOTE | 2020-05-13 13:20 | NUR ---
MEDICATED PER ORDERS, URINE TO LAB. PT STATES ABD PAIN IS 7/10
[2020-05-13 13:29] LABS: MICROSCOPIC NOT IND
--- NOTE | 2020-05-13 13:41 | NUR ---
PT REQUESTING ADDITIONAL PAIN MEDICATION AT THIS TIME, RE-MEDICATED PER ORDERS
--- NOTE | 2020-05-13 13:50 | NUR ---
REPORT RC'VD FROM SHARAN MALIN AND CARE OF PT ASSUMED.
--- NOTE | 2020-05-13 14:04 | NUR ---
ERP AT FOR RECHECK.
[2020-05-13] MEDS ORDERED: HYDROmorphone 1 MG/ML, 1ML INJ IV ONE (14:30)
--- NOTE | 2020-05-13 14:32 | NUR ---
Denae crespo in EDM - 05/13/20 at 1434 by HBENSON PT AMBULATED TO BR WITHOUT DIFFICULTY. DISASTER RECOVERY MANAGER AT NOW TO GIVE PT PO CONTRAST.
[2020-05-13] MEDS ORDERED: OMNIPAQUE 350 MG/ML, 100ML BOTTLE ONE (14:45)
[2020-05-13] MEDS ORDERED: HYDROmorphone 1 MG/ML, 1ML INJ ONE (15:21)
--- NOTE | 2020-05-13 15:30 | NUR ---
PT MEDICATED FOR 6/10 ABD PAIN (STATES IMPROVED FROM EARLIER). REPORTS DILAUDID WORKS BETTER THAN MORPHINE FOR HER. RV'WD POC WITH PT, UNDERSTANDS PLAN FOR ADMISSION. AT BS.
--- NOTE | 2020-05-13 16:29 | NUR ---
ER PA AT TO DISCUSS PLAN OF CARE.
[2020-05-13] MEDS ORDERED: SODIUM CHLORIDE 0.9% 1,000ML IVBOLUS ONE (16:30)
[2020-05-13 18:56] VITALS: BP 114/73
[2020-05-13] MEDS: HYDROmorphone 2 MG/ML, 1ML IVPush PRN ×2 (19:23→22:33)
[2020-05-13] MEDS: ONDANSETRON 2MG/ML, 2ML IVPush PRN (19:27)
[2020-05-13] MEDS: SODIUM CHLORIDE 0.9% 1,000 ML IV SCH (19:27)
[2020-05-13] MEDS ORDERED: LAMOTRIGINE 100 MG HOMEMEDPO SCH (21:00)
[2020-05-13] MEDS ORDERED: LAMOTRIGINE 100 MG TABLET PO SCH (21:00)
[2020-05-14 02:21] VITALS: BP 112/71
[2020-05-14] MEDS: ONDANSETRON 2MG/ML, 2ML IVPush PRN (02:53)
[2020-05-14] MEDS: HYDROmorphone 2 MG/ML, 1ML IVPush PRN (03:59)
[2020-05-14] MEDS: SODIUM CHLORIDE 0.9% 1,000 ML IV SCH (04:01)
[2020-05-14 04:58] LABS: BASOPHILS % (AUTO) 0 % (0-1); EOSINOPHILS % (AUTO) 1 % (1-7); LYMPHOCYTES % (AUTO) 24 % (22-44); MEAN CORPUSCULAR HEMOGLOBIN 30.7 pg (27.0-34.8); MEAN CORPUSCULAR HGB CONC 33.4 g/dL (32.4-35.8); MEAN PLATELET VOLUME 7.9 fL (7.4-10.4); MONOCYTES % (AUTO) 5 % (2-9); NEUTROPHILS % (AUTO) 70 % (42-75); PLATELET COUNT 222 x10^3/uL (130-400); RED BLOOD COUNT 3.89 x10^6/uL (3.82-5.3); RED CELL DISTRIBUTION WIDTH 12.9 % (9.6-15.2)
[2020-05-14 05:07] LABS: MD NO
[2020-05-14 05:08] LABS: ANION GAP 5 mmol/L (5-15); CALCIUM 7.7 mg/dL (8.5-10.1); CHLORIDE 111 mmol/L (98-107)
[2020-05-14 08:48] VITALS: BP 99/62
[2020-05-14] MEDS ORDERED: BUPROPION SR 100 MG TABLET PO SCH (09:00)
[2020-05-14] MEDS ORDERED: CITALOPRAM 10 MG TABLET PO SCH (09:00)
[2020-05-14] MEDS ORDERED: POLYETHYLENE GLYCOL 17 GM PACKET PO SCH (09:00)
[2020-05-14] MEDS ORDERED: BUTALB/APAP/CAFFEINE 50MG/325MG/40MG PO ONE (09:30)
[2020-05-14] MEDS ORDERED: MAGNESIUM SULFATE 1 GM/2 ML IVPush ONE (09:30)
[2020-05-14] MEDS ORDERED: MAGNESIUM SULFATE PMX 2GM/50ML 50 ML IVPB ONE (10:00)
[2020-05-14 13:40] VITALS: BP 105/71
[2020-05-14] MEDS ORDERED: BUTA-177 PO (13:54)
[2020-05-14] MEDS ORDERED: IBUPROFEN 600 MG TABLET PO PRN (14:00)
[2020-05-14] MEDS ORDERED: BUTALB/APAP/CAFFEINE 50MG/325MG/40MG PO PRN (14:00)
== END 2020-05-14 15:17 | disposition home or self-care (01) | DRG 390 ==
LOC: ED 15:41 → SUATTDRO 16:48 → EDIP 16:54 → 4NW 18:44 → DCLOUNGE 05-14 15:11
PROVIDERS: ADMIT Hospitalist; ATTEND Hospitalist
DX: K56.51 Intestinal adhesions [bands], with partial obstruction (principal); F32.9 Major depressive disorder, single episode, unspecified; Z90.49 Acquired absence of other specified parts of digestive tract
CPT/HCPCS: 36415; 74018; 74022; 74177; 80048; 80053; 81003; 83690; 84703; 85025; 93005; 96361; 96374; G0378; J1170; J2405; Q9967; J2270; J3475; J7030

== ENCOUNTER → 2020-09-30 | Outpatient (CLI) | payer OTHER ==
[~2020-09-30] MED LIST changes: +BUTA-177 PO; +OMNIPAQUE 350 MG/ML, 100ML BOTTLE ONE
== END | disposition home or self-care (01) ==
LOC: CFH 13:38
PROVIDERS: ATTEND Nurse Practitioner Primary Care
DX: R10.32 Left lower quadrant pain (principal)
CPT/HCPCS: 74177; Q9967